=== PATIENT | male | born 1965 | race Two or more races ===

== ENCOUNTER 2017-11-08 08:49 | Day surgery (SDC) | payer OTHER ==
[~2017-11-08] VITALS: Ht 172.7 cm; Wt 86.2 kg
[2017-11-08] VITALS (8 sets, daily range): BP systolic 104–130; BP diastolic 62–89
[~2017-11-08 08:49] MED LIST: IBUPROFEN600 MG PO; NKM; NORCO 5-325 TA1 EACH ORAL; VALIUM5 MG ORAL; ceFAZolin 1 GM premix IV ONE; celeBREX 200mg Cap **SURGERY PATIENTS ONLY ORAL ONE; oxyCONTIN 20mg tab ORAL ONE
[2017-11-08] MEDS ORDERED: fentaNYL 100 mcg/2 mL IV ONE (08:50)
[2017-11-08] MEDS ORDERED: Midazolam 2mg/2ml Inj ONE (08:50)
[2017-11-08] MEDS ORDERED: LR 1000ml ONE (08:50)
[2017-11-08] MEDS ORDERED: Propofol 200mg/20ml IV ONE (08:50)
[2017-11-08] MEDS ORDERED: Dexamethasone 4mg/ml vial ONE (08:50)
[2017-11-08] MEDS ORDERED: Zemuron 50mg/5ml Inj IV ONE (08:50)
[2017-11-08] MEDS ORDERED: Lidocaine 1% MPF 10mg/ml 5ml ONE (08:50)
--- NOTE | 2017-11-08 09:14 | Operative Note - PDOC ---
Operative Note Operative Note Pre-op Diagnosis: left shoulder impingement Procedure: left shoulder arthroscopy, sad, RC repair Post-op Diagnosis: same as pre-op plus Operative Findings: consistent w/pre-op dx studies Anesthesia: regional Specimen: none Complications: none Condition: stable Estimated Blood Loss: none Implant(s) used?: Yes ANEL BURNETT Nov 08, 2017 09:14
--- NOTE | 2017-11-08 09:14 | Pre-Procedure Note/Attestation ---
Pre-Procedure Note/Attestation Complete Prior to Procedure Planned Procedure: left Procedure Narrative: shoulder arthroscopy, sad Indications for Procedure Pre-Operative Diagnosis: left shoulder impingement Attestation I attest that I discussed the nature of the procedure; its benefits; risks and complications; and alternatives (and the risks and benefits of such alternatives ), prior to the procedure, with the patient (or the patient's legal treasury representative). I attest that, if there was a reasonable possibility of needing a blood transfusion, the patient (or the patient's legal treasury representative) was given the [facility] standardized written summary, pursuant to the [place] Blood Safety Act ([place] Health and Safety Code # 1645, as amended). I attest that I re-evaluated the patient just prior to the surgery and that there has been no change in the patient's H&P, except as documented below: ANEL BURNETT Nov 08, 2017 09:14
[2017-11-08] MEDS ORDERED: HYDROmorphone 1mg/ml Carpuject SUBQ PRN (09:15)
[2017-11-08] MEDS ORDERED: Norco 5mg/325mg tab ORAL PRN (09:15)
[2017-11-08] MEDS ORDERED: D5 1/2NS 1,000 ML IV SCH (09:15)
[2017-11-08] MEDS ORDERED: Tylenol #3 tab (300mg/30mg) ORAL PRN (09:15)
[2017-11-08] MEDS ORDERED: celeBREX 200mg Cap **SURGERY PATIENTS ONLY ORAL ONE (10:13)
[2017-11-08] MEDS ORDERED: Bupivacaine 0.25% Inj 30ml INJ ONE (11:07)
[2017-11-08] MEDS ORDERED: EPINEPHrine 1mg/1ml Amp ONE (11:07)
[2017-11-08] MEDS ORDERED: Ropivacaine 5mg/ml Vial 30ml INJ ONE (12:16)
--- NOTE | 2017-11-08 12:58 | Anethesia Preoperative Eval ---
Anesthesia Pre-op PMH/ROS General Date of Evaluation: Nov 08, 2017 Anesthesiologist: Mo ASA Score: ASA 1 Mallampati Score Class I : Soft palate, uvula, fauces, pillars visible Class II: Soft palate, uvula, fauces visible Class III: Soft palate, base of uvula visible Class IV: Only hard plate visible Mallampati Classification: Class II Surgeon: Khanh Diagnosis: Left shoulder pain Surgical Procedure: Left shoulder arthroscopy Anesthesia History: none Family History: no anesthesia problems Allergies: Coded Allergies: ATROPINE (Verified Allergy, Mild, SPEEDS HEART, 01/13/14) Medications: see eMAR Past Medical History Cardiovascular: Denies: HTN, CAD, [place], valve dz, arrhythmia, other Pulmonary: Denies: asthma, COPD, AZRA, other Gastrointestinal/Genitourinary: Denies: GERD, CRI, ESRD, other Neurologic/Psychiatric: Denies: dementia, CVA, depression/anxiety, TIA, other Endocrine: Denies: DM, hypothyroidism, steroids, other HEENT: Denies: cataract (L), cataract (R), glaucoma, [place] (L), [place] (R), other Hematology/Immune: Denies: anemia, DVT, bleeding disorder, other Musculoskeletal/Integumentary: Denies: OA, RA, DJD, DDD, edema, other PSxH Narrative: Right shoulder arthroscopy Anesthesia Pre-op Phys. Exam Physician Exam Last Vital Signs Date Time Temp Pulse Resp B/P (MAP) Pulse Ox O2 Delivery O2 Flow Rate FiO2 11/08/17 09:33 97.5 57 20 119/70 97 Room Air Constitutional: NAD Cardiovascular: RRR Respiratory: CTA Airway Exam Mallampati Score: Class II MO: full ROM: full Teeth: intact Anesthesia Pre-op A/P Labs see chart Studies Pre-op Studies: EKG - srs Risk Assessment & Plan Assessment: ASA I Plan: GA, left interscalene nerve block Status Change Before Surgery: No Pre-Antibiotics Drug: Ancef 2g Given Within 1 Hr of Incision: Yes Time Given: 12:45 LOLY COLEMAN M.D. Nov 08, 2017 12:58
--- NOTE | 2017-11-08 12:59 | 48 Hour Post Anesthesia Eval ---
Post Anesthesia Evaluation Procedure: Left shoulder arthroscopy Date of Evaluation: Nov 08, 2017 Time of Evaluation: 15:00 Blood Pressure Systolic: 104 0: 62 Pulse Rate: 71 Respiratory Rate: 17 Temperature (Fahrenheit): 97 O2 Sat by Pulse Oximetry: 95 Airway: patent Nausea: No Vomiting: No Pain Intensity: 0 Hydration Status: adequate Cardiopulmonary Status: at baseline Mental Status/LOC: patient returned to baseline Post-Anesthesia Complications: 0 Follow-up care needed: ready to discharge LOLY COLEMAN M.D. Nov 08, 2017 12:59
--- NOTE | 2017-11-08 12:59 | Immediate Post-Op Evaluation ---
Immediate Post-Op Evalulation Immediate Post-Op Evalulation Procedure: Left shoulder arthroscopy Date of Evaluation: Nov 08, 2017 Time of Evaluation: 14:08 IV Fluids: 800 Blood Products: 0 Estimated Blood Loss: min Urinary Output: 0 Blood Pressure Systolic: 121 Blood Pressure Diastolic: 72 Pulse Rate: 63 Respiratory Rate: 16 O2 Sat by Pulse Oximetry: 99 Temperature (Fahrenheit): 97.7 Pain Score (1-10): 0 Nausea: No Vomiting: No Complications 0 Patient Status: awake, reacts, patent, none Hydration Status: adequate Drug: Ancef 2g Given Within 1 Hr of Incision: Yes Time Given: 12:45 LOLY COLEMAN M.D. Nov 08, 2017 12:59
[2017-11-08] MEDS ORDERED: LR 1000ml 1,000 ML IVLG SCH (13:08)
[2017-11-08] MEDS ORDERED: LORazepam Inj 2mg/ml 1ml IV PRN (13:15)
[2017-11-08] MEDS ORDERED: Midazolam 2mg/2ml Inj IVP PRN (13:15)
[2017-11-08] MEDS ORDERED: Ketorolac 30mg Inj IV PRN (13:15)
[2017-11-08] MEDS ORDERED: fentaNYL 100 mcg/2 mL IV PRN (13:15)
[2017-11-08] MEDS ORDERED: Hydromorphone 0.5mg/0.5ml inj IVP PRN (13:15)
[2017-11-08] MEDS ORDERED: DiphenhydrAMINE 50mg/ml Inj IVP PRN (13:15)
--- NOTE | 2017-11-08 18:45 | Operative Note - Dictated ---
DATE OF OPERATION: 11/08/2017 PREOPERATIVE DIAGNOSIS: Shoulder impingement syndrome. POSTOPERATIVE DIAGNOSIS: 1. Left shoulder impingement syndrome. 2. Left shoulder bursal-sided high-grade rotator cuff tear. PROCEDURES: 1. Left shoulder subacromial decompression with bursectomy. 2. Left shoulder repair of bursal-sided full-thickness rotator cuff tear. SURGEON: Tobi Cassidy M.D. ANESTHESIA: Interscalene with general. INDICATION FOR PROCEDURE: The patient is a pleasant gentleman, who has had progressive left shoulder pain. He failed conservative treatment and he is still having difficulty with activities and elected to undergo left shoulder arthroscopy and subacromial decompression bursectomy. Risks, limitations, expectations, and complications related to the procedure were discussed in detail including continued pain, need for future surgery, risk of anesthesia, medical complications, DVT, PE, and mortality risks. All questions were addressed. DESCRIPTION OF PROCEDURE: After informed consent was obtained, the patient was brought to the operating room. The patient was placed under monitored anesthesia control. The patient was then carefully placed in the beachchair position. Left shoulder was prepped and draped in a sterile manner. Time-out was performed. Posterolateral stab incision was then made. Trocar was introduced into the glenohumeral joint. There is no subchondral damage. Anterior labrum appeared to be intact along with the superior labrum. The undersurface of the rotator cuff, there is small partial rotator cuff tear that did not appear to be full-thickness. Camera was then repositioned in the subacromial space. There is hypertrophic bursal tissue, which was all removed identified at undersurface of the acromion and acromioplasty was done from lateral to medial and completed from posterior to anterior. Once that was done, a complete bursectomy was performed. Once the resection was performed, a bursal-sided high-grade rotator cuff tear was identified. Therefore, an anchor was placed and two mattress sutures were used to synch down the rotator cuff along with the lateral row. Once that was completed, instruments were removed. Portal sites were closed with 3-0 Monocryl sutures. Steri-Strips and a sterile dressing were applied. The patient was awoken and taken to recovery room with stable vital signs. ESTIMATED BLOOD LOSS: Minimal. COMPLICATIONS: None. SPECIMENS: None. IMPLANTS: Two Biomet anchors. Tobi Cassidy M.D. DR: VISHAL JOB#: [id number] CC:
[2017-11-12 07:03] VITALS: BP 104/62
== END 2017-11-08 15:30 | disposition home or self-care (01) ==
LOC: SDS 08:49
DX: M75.42 Impingement syndrome of left shoulder (principal); M75.122 Complete rotator cuff tear or rupture of left shoulder, not specified as traumatic; Z88.8 Allergy status to other drugs, medicaments and biological substances
CPT/HCPCS: 29826; 29827; C1713; J0171; J1100; J2250; J2405; J2704; J2795; J3010; J3490; J7120; 94003; 94150

== ENCOUNTER 2019-07-03 05:27 | Inpatient (IN) | payer OTHER ==
[2019-07-03] VITALS (16 sets, daily range): BP systolic 110–146; BP diastolic 50–91
[~2019-07-03] VITALS: Ht 172.7 cm; Wt 81.6 kg
[~2019-07-03 05:27] MED LIST changes: -ceFAZolin 1 GM premix IV ONE; -celeBREX 200mg Cap **SURGERY PATIENTS ONLY ORAL ONE; -oxyCONTIN 20mg tab ORAL ONE
[2019-07-03] MEDS ORDERED: LR 1000ml 1,000 ML IVLG SCH (06:29)
[2019-07-03] MEDS ORDERED: Metoclopramide 10mg/2ml Inj IVP PRN ×2 (06:30→07:45)
[2019-07-03] MEDS ORDERED: oxyCODONE HCL/Acetaminophen 5/325mg ORAL PRN (06:30)
[2019-07-03] MEDS ORDERED: Midazolam 2mg/2ml Inj IVP PRN (06:30)
[2019-07-03] MEDS ORDERED: fentaNYL 100 mcg/2 mL IV PRN (06:30)
[2019-07-03] MEDS ORDERED: Labetalol 5mg/ml 20ml vial IV PRN (06:30)
[2019-07-03] MEDS ORDERED: Ketorolac 30mg Inj IV PRN ×2 (06:30)
[2019-07-03] MEDS ORDERED: Hydromorphone 0.5mg/0.5ml inj IVP PRN (06:30)
[2019-07-03] MEDS ORDERED: Acetaminophen (Non formulary) 100 ML IV ONE (06:30)
[2019-07-03] MEDS ORDERED: Meperidine 50mg/ml Inj(FOR RIGORS ONLY) IVP PRN (06:30)
[2019-07-03] MEDS ORDERED: HYDROcodone/Acetamin 7.5/325 tab ORAL PRN ×2 (06:30→07:45)
[2019-07-03] MEDS ORDERED: LORazepam Inj 2mg/ml 1ml IV PRN (06:30)
[2019-07-03] MEDS ORDERED: DiphenhydrAMINE 50mg/ml Inj IVP PRN (06:30)
[2019-07-03] MEDS ORDERED: HYDROcodone/Acetamin 5/325 tab ORAL PRN ×2 (06:30→07:45)
--- NOTE | 2019-07-03 06:30 | Anethesia Preoperative Eval ---
Anesthesia Pre-op PMH/ROS General Date of Evaluation: Jul 03, 2019 Time of Evaluation: 07:16 Anesthesiologist: Felix ASA Score: ASA 1 Mallampati Score Class I : Soft palate, uvula, fauces, pillars visible Class II: Soft palate, uvula, fauces visible Class III: Soft palate, base of uvula visible Class IV: Only hard plate visible Mallampati Classification: Class II Surgeon: Von Diagnosis: Neck Pain Surgical Procedure: ADR C5-6, ACDF C6-7 Anesthesia History: none Family History: no anesthesia problems Allergies: Coded Allergies: ATROPINE (Verified Allergy, Mild, SPEEDS HEART, 01/13/14) Medications: see eMAR Patient NPO?: Yes NPO Date: Jul 02, 2019 NPO Time: 1800 Past Medical History PSxH Narrative: L&R Shoulder Sx, R Knee Sx Anesthesia Pre-op Phys. Exam Physician Exam Last Vital Signs Date Time Temp Pulse Resp B/P (MAP) Pulse Ox O2 Delivery O2 Flow Rate FiO2 07/03/19 06:07 Room Air Constitutional: NAD Neurologic: CN 2-12 intact Cardiovascular: RRR Respiratory: CTA Gastrointestinal: S/NT/ND Airway Exam Mallampati Score: Class II MO: full ROM: full Teeth: intact Anesthesia Pre-op A/P Risk Assessment & Plan Assessment: ASA 1 Plan: ASA 1 Status Change Before Surgery: No Pre-Antibiotics Dru Grams Ancef IV Given Within 1 Hr of Incision: Yes Time Given: 07:21 Simba Washington MD Jul 03, 2019 06:30
[2019-07-03] MEDS ORDERED: Vancomycin 1gm vial IVPB ONE (06:33)
[2019-07-03] MEDS ORDERED: Gelfoam Size TOPIC ONE (06:34)
[2019-07-03] MEDS ORDERED: Thrombin 5000 units TOPIC ONE (06:34)
[2019-07-03] MEDS ORDERED: Bacitracin 50000 Units Vial ONE (06:34)
[2019-07-03] MEDS ORDERED: Zemuron 50mg/5ml Inj IV ONE (06:37)
[2019-07-03] MEDS ORDERED: Dexamethasone 4mg/ml vial ONE (06:47)
[2019-07-03] MEDS ORDERED: fentaNYL 100 mcg/2 mL IV ONE (06:47)
[2019-07-03] MEDS ORDERED: Lidocaine 1% Plain 30 ml INJ ONE ×2 (06:47→08:57)
[2019-07-03] MEDS ORDERED: Sodium Chloride 10ml vial INJ ONE (06:47)
[2019-07-03] MEDS ORDERED: Lidocaine 1% MPF 10mg/ml 5ml ONE (06:47)
[2019-07-03] MEDS ORDERED: Propofol 1,000mg/ 100ml btl IV ONE (07:00)
[2019-07-03] MEDS ORDERED: ceFAZolin sod 2 GM in D5W 110 ML IVPB ONE (07:00)
--- NOTE | 2019-07-03 07:33 | Pre-Procedure Note/Attestation ---
Pre-Procedure Note/Attestation Complete Prior to Procedure Planned Procedure: not applicable Procedure Narrative: Cervical 56 artificial disc replacement Cervical 67 Anterior cervical discectomy and fusion Indications for Procedure Pre-Operative Diagnosis: cervical 56,67 hnp Attestation I attest that I discussed the nature of the procedure; its benefits; risks and complications; and alternatives (and the risks and benefits of such alternatives ), prior to the procedure, with the patient (or the patient's legal patient registration representative). I attest that, if there was a reasonable possibility of needing a blood transfusion, the patient (or the patient's legal patient registration representative) was given the [facility] standardized written summary, pursuant to the [place] Blood Safety Act ([place] Health and Safety Code # 1645, as amended). I attest that I re-evaluated the patient just prior to the surgery and that there has been no change in the patient's H&P, except as documented below: Jose A Longoria MD Jul 03, 2019 07:33
--- NOTE | 2019-07-03 07:35 | Brief Operative Note ---
Immediate Post Operative Note Operative Note Chief Complaint: neck pain and radiculopathy Pre-op Diagnosis: cervical 56,67 hnp Procedure: Cervical 56 artificial disc replacement Cervical 67 Anterior cervical discectomy and fusion Post-op Diagnosis: same as pre-op Findings: consistent w/pre-op dx studies Surgeon: Von Topographic Computator: Khanh Anesthesiologist: Felix Anesthesia: general Specimen: none Complications: none Condition: stable Fluids: IVF Estimated Blood Loss: minimal Drains: none Implant(s) used?: Yes - Prodisc c sz 5, nuvasive interlock sz 6 Jose A Longoria MD Jul 03, 2019 07:35
[2019-07-03] MEDS ORDERED: Morphine Sulfate 4mg/ml Inj (IV USE ONLY) IV PRN ×2 (07:45)
[2019-07-03] MEDS ORDERED: HYDROmorphone 1mg/ml Carpuject IVP PRN (07:45)
[2019-07-03] MEDS ORDERED: Chloraseptic Spray 20mL Bottle ORAL PRN (07:45)
[2019-07-03] MEDS ORDERED: Milk of Magnesia 30ml Ud ORAL PRN (07:45)
[2019-07-03] MEDS ORDERED: Morphine Sulfate 2mg/ml Inj(IV/IM USE ONLY) IV PRN (07:45)
[2019-07-03] MEDS ORDERED: Naloxone 0.4mg/ml Inj IVP PRN (07:45)
--- NOTE | 2019-07-03 08:34 | NUR ---
CASE MANAGEMENT:REVIEW 53 YR OLD MALE HERE FOR ELECTIVE SURGERY SI: NECK PAIN AND RADICULOPATHY IS: TO SURGERY : WILL GO TO MED/SURG POST OP
[2019-07-03] MEDS ORDERED: Glycopyrrolate 0.2mg/ml 1ml Vial ONE (09:23)
--- NOTE | 2019-07-03 10:02 | Immediate Post-Op Evaluation ---
Immediate Post-Op Evalulation Immediate Post-Op Evalulation Procedure: ADR C5-6, ACDF C6-7 Date of Evaluation: Jul 03, 2019 Time of Evaluation: 10:08 IV Fluids: 900 LR Blood Products: 0 Estimated Blood Loss: 25 Urinary Output: 100 Blood Pressure Systolic: 135 Blood Pressure Diastolic: 91 Pulse Rate: 69 Respiratory Rate: 16 O2 Sat by Pulse Oximetry: 100 Temperature (Fahrenheit): 97.6 Pain Score (1-10): 2 Nausea: No Vomiting: No Complications 0 Patient Status: awake, reacts, patent, extubated, none Hydration Status: adequate Dru Grams Ancef IV Given Within 1 Hr of Incision: Yes Time Given: 07:21 Simba Washington MD Jul 03, 2019 10:02
--- NOTE | 2019-07-03 10:50 | NUR ---
HIS HR IS ON 40'S, DR. RODAS MADE AWARE WITH NO NEW ORDERS NOTED.
--- NOTE | 2019-07-03 11:30 | NUR ---
NURSE NOTES: Received report from Modesta MELGAR. Patient is awake and oriented, no acute distress noted, reporting throat discomfort but reports pain is well managed at this time. Surgical site clean and dry, ice pack in place. SCD's on. Left hand IV intact, patent. Gonzales catheter removed at bedside by Modesta MELGAR. Neuro check assessed intact, patient reports no numbness/tingling in extremities or difficulty with movement. Patient educated not to turn head side to side, to keep neck in neutral position, verbalized understanding. Patient and his son at bedside updated on plan of care for the day. Side rails upx3, bed low and locked, call light in reach. Will continue to monitor.
[2019-07-03] MEDS: Dexamethasone 4mg/ml vial IVP SCH ×3 (12:15→23:29)
[2019-07-03] MEDS ORDERED: NS w/KCl 20mEq 1000ml 1,000 ML IV SCH (13:00)
--- NOTE | 2019-07-03 14:19 | Diagnostic Imaging Report ---
Indication: Intraoperative imaging discectomy and fusion Findings: 4 fluoroscopic views of the cervical spine were obtained. Intraoperative imaging showing localization followed by discectomy and prosthesis placement at C5-6 and anterior fusion at C6-7. IMPRESSION: Intraoperative imaging
[2019-07-03] MEDS: ceFAZolin sod 1 GM in D5W 55 ML IV SCH ×2 (15:49→23:29)
--- NOTE | 2019-07-03 16:45 | Operative Note - Dictated ---
DATE OF OPERATION: 07/03/2019 SURGEON: Jose A Longoria MD, orthopedic spine surgeon. NEURORADIOLOGIST: Tobi Cassidy M.D. ANESTHESIA: Simba Washington M.D. PREOPERATIVE DIAGNOSES: 1. Intractable neck pain. 2. Radiculopathy. 3. Herniation, C5-C6, C6-C7. 4. Neural foraminal stenosis C5-C6, C6-C7. 5. Stenosis. POSTOPERATIVE DIAGNOSES: 1. Intractable neck pain. 2. Radiculopathy. 3. Herniation, C5-C6, C6-C7. 4. Neural foraminal stenosis C5-C6, C6-C7. 5. Stenosis. PROCEDURE PERFORMED: 1. Anterior cervical discectomy and artificial disc replacement of C5-C6 using a Synthes Prodisc C 5 height. 2. Anterior cervical discectomy and fusion of C6-C7 Nuvasive Interlock C size 6 PEEK cage and three 14 mm screws and 1 mL Osteocell allograft bone and local autograft. 3. Use of intraoperative microscope. 4. Motor evoked potential monitoring. 5. Somatosensory evoked potential monitoring. 6. Supervision and interpretation of fluoroscopy. COMPLICATIONS: None. ANESTHESIA: General. ESTIMATED BLOOD LOSS: Less than 100 mL. INDICATIONS FOR SURGERY: This patient is a 53-year-old male who has a history of diagnoses as listed above. As of result of this, the patient sustained intractable neck pain, radiculopathy, herniation, C5-C6, C6-C7, neural foraminal stenosis C5-C6, C6-C7, stenosis. We tried a course of conservative management but despite this course there was still a significant component of persistent, recalcitrant neck pain and arm pain. The MRI demonstrated significant neural foraminal compromise secondary to disc herniations at C5-C6, C6-C7. We had a long discussion with Klaus regarding the risks and benefits of surgery. Our discussion included but was not limited to nonoperative management, chiropractic management, another epidural steroid injection as well definitive management in the form of surgery. We recommended an artificial disc replacement of C5-C6 and anterior cervical discectomy and fusion of C6-C7 as final definitive management. We reviewed the risks and benefits of surgery with the patient. Our discussion included a comprehensive review of the clinical issues and the nature of the clinical decision. We reviewed the alternatives, including doing nothing. The patient elected to proceed accordingly with an artificial disc replacement of cervical C5-C6 and anterior cervical discectomy and fusion of cervical C6-C7. We had a long discussion regarding the risks, alternatives and benefits of surgery. Our description of the risks included a discussion in person as well as a signed consent which detailed all pertinent risks from the procedure itself. Briefly, our discussion included but was not limited to infection, bleeding, pseudarthrosis, spinal cord injury, neurovascular injury, dural tear, CSF leak, neuropathy, paralysis, permanent weakness/drop foot/drop arm, paresthesias, blindness, palsy and weakness. The patient understood there may be a need for a revision surgery or additional procedures. Approach-related complications including dysphonia, dysphagia, blindness, permanent vocal cord and neural injury, hematoma, swallowing and breathing difficulty. Medical complications were reviewed including liver, kidney, shock, cardiopulmonary failure, anesthesia complications including , swelling, damage to the musculature, larynx/voice injury or loss, esophagus/throat, trachea, blood vessels and muscles/muscular sprain and lungs/pneumothorax during this surgical procedure; injury to deeper structures may be temporary or permanent. After this review of risks, the patient understood these and elected to proceed. A written and verbal consent was given. We discussed the pros and cons of all the alternatives. We discussed the uncertainties associated with the decision. Afterwards I assessed the patient's understanding and explored their preferences. All questions were answered and no guarantees were given. Medical clearance was obtained prior to surgery. INTRAOPERATIVE FINDINGS: A discrete disc herniation which was found posterior to an obvious tear in the posterior longitudinal ligament at C5-C6. This was causing a considerable amount of neural foraminal stenosis with significant encroachment on the neural foramina and spinal cord which was being impinged as a result of this pressure. Upon inspection of the interspace at C6-C7. I noticed a rent in the posterior longitudinal ligament or PLL. Upon inspection of this tear once it was mobilized with Kerrison rongeurs there was a disc fragment and herniation causing encroachment on the neural foramina and spinal cord posterior to the PLL. This was resected as well which caused some noted relief on the underlying neural elements. At C5-C6, I encountered a tear in the posterior longitudinal ligament, which was approximately 28 degrees cephalad to caudad, which was approximately right-sided near the neural foramina. There was clear distinct tear in the PLL. I probed this area. Posterior to this, I found the base of the disc herniation, which was resected with a combination of Microsect curettes, Kerrison-1 and Kerrison-2 rongeurs till the entire thecal sac and neural foramina were thoroughly decompressed. The disc itself was soft, mobile, and not desiccated in anyway or dehydrated. At C6-C7, I found decreased disc height near the posterior longitudinal ligament. There was a tear in the PLL itself, which was more vertical in nature. Through this, I encountered after probing with a Microsect 1-B and 2-B curettes, the base of a disc herniation was led to a large fragment of herniated nucleus pulposus tissue with encroachment on the exiting neural foramina and neural element therein near the spinal cord as well. The disc itself was somewhat desiccated; however, not calcified whatsoever. DESCRIPTION OF PROCEDURE: Under the benefit of general endotracheal anesthesia and with the assistance of the entire operative team, the patient was moved from the rney onto the operative table in the supine position. The head was secured and carefully positioned appropriately. Bilateral arms were secured with GelPads and foam and all bony prominences were padded. For the bilateral lower extremities SCD and GENET hose were placed for DVT prophylaxis. A surgical timeout was called which corroborated our planned procedure of artificial disc replacement of an artificial disc replacement of C5-C6 and anterior cervical discectomy and fusion of cervical C6-C7. Preoperative antibiotics were administered within 30 minutes of the incision for antibiotic prophylaxis. Using lateral fluoroscopic radiography, the operative levels were delineated. Next the wound was prepped and draped with Chlorhexidine and sterile drapes. An incision was based on lateral fluoroscopy and we centered our incision at the C5-C6, C6-C7. Interspace and next using a standard Lynne-Davila anterior based approach the incision was taken down through the skin and subcutaneous tissues until the vertebral bodies and their corresponding disc spaces were visualized. A needle was placed into the interspace to confirm placement of the operative interspace and we performed the remainder of procedure under microscopic visualization. Next, using a bipolar and Bovie cautery to ensure meticulous hemostasis, the longus colli was mobilized bilaterally and retractors were placed deep to the longus colli bilaterally to address retraction. Next we turned our attention to the radical anterior discectomy. This was initially performed at C5-C6. First by using a 15 blade scalpel followed by narrow pituitaries and a Microsect 5-B curette was used to denude the endplate of all cartilaginous tissue. Next using a Midas Noe AM8 drillbit the vertebral endplates were denuded of all residual cartilage in a [id number]-[id number] and layer by layer fashion, and ultimately the posterior uncinate joints bilaterally and posterior osteophytic lips and margins were carefully denuded until clear visualization of the posterior longitudinal ligament was possible. An endplate preparation was performed in the exact same fashion using an intervertebral paper sales representative, sequential distraction was obtained throughout the disc space. We saw a tear/rent in the PLL and this was carefully mobilized and dissected using a Microsect 1-B curet until we visualized a discrete disc herniation with compression of the spinal cord as well as neural foramina . This neural foraminal compression was carefully resected using a Kerrison-1 and Kerrison-2 rongeurs until complete decompression of the spinal cord was visualized and complete decompression of the neural foramina and nerve root therein as well as the axilla and lateral margin of the nerve root was visualized and subsequently completely decompressed. The family was notified at one hour intervals throughout the procedure to provide for consistent updates. We next turned our attention towards trialing our implant within the disc space. We initially tried size 5 and this Prodisc Cervical spacer fit well in regards to depth and width. This implant was opened and prepared. Next under direct visualization I confirmed excellent fit in respect to the anterior and posterior vertebral bodies, the uncinate joints and in regards to toggle. Once satisfied with this placement on serial AP and lateral fluoroscopy I turned my attention towards cutting our vinicius. These were cut in the bones using a reciprocating drill and afterwards all free fragments of bone were irrigated. Next FloSeal was placed into the interspace, then removed in its entirety and the implant was inserted using fluoroscopic guidance. Next the Synthes Prodisc C size 5 ADR was then carefully advanced and secured into the intervertebral space under direct visualization and with supervision of AP and lateral fluoroscopic views. I next turned my attention towards the radical anterior discectomy. This was then performed at C6-C7. First by using a 15 blade scalpel followed by narrow pituitaries and a micro-sect 5-B curette was used to denude the endplate of all cartilaginous tissue. Next using a Midas Noe AM8 drillbit the vertebral endplates were denuded of all cartilaginous tissue in a rzvb-dy-kkiz and layer by layer fashion, and ultimately the posterior uncinate joints bilaterally and posterior osteophytic lips and margins were carefully denuded until wide and thorough visualization of the posterior longitudinal ligament was possible. At this level the endplate preparation was performed in the exact same fashion using an intervertebral paper sales representative, sequential distraction was obtained throughout the disc space. We saw a tear/rent in the PLL and this was carefully mobilized and dissected using a micro-set 1-B curette until we visualized an obvious disc herniation with compression of the spinal cord as well as neural foramina . This neural foraminal compression was carefully resected using a Kerrison-1 and Kerrison-2 rongeurs until complete decompression of the spinal cord was visualized and complete decompression of the neural foramina and nerve root therein as well as the axilla and lateral margin of the nerve root was visualized and subsequently completely decompressed. We next turned our attention towards trialing our implant within the disc space. We initially tried size 5 and afterwards size 6 trial from the Nuvasive interlock system at each level, which appeared to be appropriate under AP and lateral fluoroscopy as well as in terms of its height, depth, width and lack of toggle. The PEEK polyetheretherketone interbody cages were then both packed with allograft bone from Osteocel and local autograft bone matrix. Next these were then carefully advanced and secured into their intervertebral spaces under direct visualization and with supervision of AP and lateral fluoroscopic views. We next turned our attention towards plating. Plating was performed at each level with the Nuvasive interlock-C plating system. A total of three screws, size 14 mm in length were inserted and confirmed under AP and lateral fluoroscopy and confirmed to be in excellent position. After a finger sweep we confirmed removal of all sponges. The retractor was removed and we next turned our attention to meticulous hemostasis with FloSeal and bipolar cautery. After the sponge and needle count was again found to be correct with our second count, we next turned our attention to closure. The wound was again copiously irrigated with antibiotic impregnated saline Closure consisted of 4-0 clear nylon for the platysma, and 5-0 clear nylon for the superficial skin. Final skin closure and dressings consisted of Dermabond. Prior to final closure, a final radiograph was obtained which demonstrated the hardware is intact with excellent position throughout. The patient tolerated the procedure well. The patient was carefully extubated after the conclusion of surgery. We discussed the findings of the surgery with the family upon completion of the case. At this point the patient was transferred to the spine floor for further observation. Jose A Longoria M.D. DR: AZAEL JOB#: [id number] CC:
--- NOTE | 2019-07-03 17:43 | NUR ---
NURSE NOTES: Patient eating well and tolerating PO fluids. IVF discontinued per order.
[2019-07-03] MEDS: Docusate 100mg cap ORAL SCH (17:47)
--- NOTE | 2019-07-03 19:30 | NUR ---
HAND-OFF: Report given to Brenden MELGAR.
--- NOTE | 2019-07-03 19:52 | NUR ---
NURSE NOTES: Received report from Cinda Boykin RN. Patient is ambulating in room, SCDs on legs. No c/o of pain, SOB or distress. Requesting permission to eat food. IV c/d/i. surgical site open to air with Dermabond. No s/s of redness or inflammation. Will continue to monitor.
[2019-07-03] MEDS: HYDROcodone/Acetamin 7.5/325 tab ORAL PRN (21:56)
[2019-07-04] VITALS: BP 117/99
[2019-07-04 04:00] VITALS: BP 126/85
[2019-07-04] MEDS: HYDROcodone/Acetamin 7.5/325 tab ORAL PRN (04:37)
[2019-07-04] MEDS: Dexamethasone 4mg/ml vial IVP SCH (06:08)
--- NOTE | 2019-07-04 07:30 | NUR ---
NURSE NOTES: AWAKE/ALERT. PAIN SCALE 6/10. ANTERIOR NECK DRESSING INTACT. IN NO ISTRESS.
--- NOTE | 2019-07-04 07:31 | NUR ---
HAND-OFF: Report given to TALIA Hernandez. Patient is in stable condtion.
[2019-07-04 08:00] VITALS: BP 132/86
[2019-07-04] MEDS: Docusate 100mg cap ORAL SCH (08:48)
[2019-07-04] MEDS: ceFAZolin sod 1 GM in D5W 55 ML IV SCH (08:49)
[2019-07-04 09:40] VITALS: BP 132/86
--- NOTE | 2019-07-04 09:40 | 48 Hour Post Anesthesia Eval ---
Post Anesthesia Evaluation Procedure: ADR C5-6, ACDF C6-7 Date of Evaluation: Jul 04, 2019 Time of Evaluation: 09:39 Blood Pressure Systolic: 132 0: 86 Pulse Rate: 96 Respiratory Rate: 18 Temperature (Fahrenheit): 97.7 O2 Sat by Pulse Oximetry: 96 Airway: patent Nausea: No Vomiting: No Pain Intensity: 3 Hydration Status: adequate Cardiopulmonary Status: Stable Mental Status/LOC: patient returned to baseline Follow-up Care/Observations: 0 Post-Anesthesia Complications: 0 Follow-up care needed: N/A Simba Washington MD Jul 04, 2019 09:40
[2019-07-04] MEDS ORDERED: NORCO 10-325 T1 EACH ORAL (09:47)
--- NOTE | 2019-07-04 11:25 | NUR ---
NURSE NOTES: DISCHARGE HOME ACCPD BY FRIEND IN STABLE CONDITION. DC INSTRUCTIONS AND PRESCRIPTION MEDS GIVEN.
--- NOTE | 2019-07-04 11:30 | Discharge Summary ---
DATE OF ADMISSION: 07/03/2019 DATE OF DISCHARGE: 07/04/2019 PROCEDURE PERFORMED DURING ADMISSION: Artificial disc replacement of C5-C6, anterior cervical discectomy and fusion of C6-C7. REASON FOR ADMISSION: Herniated nucleus pulposus C5-C6 and C6-C7. HOSPITAL COURSE/TREATMENT RENDERED: DISCHARGE PHYSICAL EXAMINATION: 1. The patient was ambulating with and without the assistance of physical therapy. 2. Prior to discharge home, incision was clean and dry with minimal swelling. 3. Follows commands. 4. Alert and oriented. 5. Gonzales discontinued, voiding. 6. Incentive spirometer at bedside. 7. IVF hep locked. MOTOR: Demonstrates expected postoperative bulk and tone. Moves biceps, triceps, and deltoid musculature on command. Moves hip flexors, quadriceps, tibialis anterior, EHL, gastrocsoleus musculature on command as well. TREATMENT RENDERED: 1. Daily nursing care. 2. Physical Therapy. 3. Occupational Therapy. 4. Intravenous medications. 5. Oral medications. 6. Daily postoperative examinations by Spine surgery team. CONDITION OF PATIENT ON DISCHARGE: The condition on discharge is stable for discharge to home. DISCHARGE INSTRUCTIONS: Our specific instructions relating to physical activity, medications, diet, and followup care are detailed in our standard operative folder and were given to this patient prior to surgery. We will however summarize these briefly as stated below. Regarding physical activity, we would like the patient to limit their flexion, extension, and rotation. We also require a limitation on their bending, lifting, and twisting. All medication has been called in prior to surgery to their pharmacy of choice. They can resume their regular diet once tolerated. We would like them to shower and limit soaking the wound in a tub/Jacuzzi/the ocean for a period of one month or until the incision is completely healed. We will have them follow up in our office in three weeks' time for their regularly scheduled appointment. They understand to call our office tomorrow to schedule the time for their three-week followup appointment. The patient will notify us should they experience any increase in the severity of pain, redness/swelling/ or drainage from their incision. Jose A Longoria M.D. DR: CHANTELLE JOB#: [id number] CC:
== END 2019-07-04 11:29 | disposition home or self-care (01) | DRG 473 ==
LOC: SDSOVERFLO 05:27 → 3E 11:33
DX: M50.122 Cervical disc disorder at C5-C6 level with radiculopathy (principal); M48.02 Spinal stenosis, cervical region; V29.9XXS Motorcycle rider (driver) (passenger) injured in unspecified traffic accident, sequela
CPT/HCPCS: 36415; 72040; 76000; 86850; 86900; 86901; 87081; 94003; 94150; J2405

== ENCOUNTER 2019-10-06 05:19 | Inpatient (IN) | payer OTHER ==
[~2019-10-06] VITALS: Ht 172.7 cm; Wt 85.0 kg
[2019-10-06] VITALS (14 sets, daily range): BP systolic 104–140; BP diastolic 61–107
[~2019-10-06 05:19] MED LIST changes: +NORCO 10-325 T1 EACH ORAL
[2019-10-06] MEDS ORDERED: fentaNYL 100 mcg/2 mL IV ONE (06:34)
[2019-10-06] MEDS ORDERED: Midazolam 2mg/2ml Inj ONE (06:34)
[2019-10-06] MEDS ORDERED: Lidocaine 1% MPF 10mg/ml 5ml ONE (06:34)
[2019-10-06] MEDS ORDERED: Vancomycin 1gm vial IVPB ONE (06:44)
[2019-10-06] MEDS ORDERED: Thrombin 5000 units TOPIC ONE ×2 (06:45→08:38)
[2019-10-06] MEDS ORDERED: Gelfoam Size TOPIC ONE (06:45)
[2019-10-06] MEDS ORDERED: Bacitracin 50000 Units Vial ONE (06:46)
[2019-10-06] MEDS ORDERED: Ropivacaine 5mg/ml Vial 30ml INJ ONE ×2 (06:46→08:56)
[2019-10-06] MEDS ORDERED: Bupivacaine w/Epi 0.5% 30ml Vial INJ ONE (06:46)
[2019-10-06] MEDS ORDERED: Succinylcholine 20mg/ml 10ml vial ONE (06:47)
[2019-10-06] MEDS ORDERED: Rocuronium Bromide 50mg/5ml Inj IV ONE (06:47)
[2019-10-06] MEDS ORDERED: ceFAZolin sod 2 GM in D5W 110 ML IVPB ONE (07:00)
[2019-10-06] MEDS ORDERED: Propofol 1,000mg/ 100ml btl IV ONE (07:00)
--- NOTE | 2019-10-06 07:30 | Pre-Procedure Note/Attestation ---
Pre-Procedure Note/Attestation Complete Prior to Procedure Planned Procedure: bilateral Procedure Narrative: Hemilaminotomy foraminotomy Lumbar 45,5S1 Indications for Procedure Pre-Operative Diagnosis: Lumbar 45,5S1 herniation and neuroforaminal stenosis Attestation I attest that I discussed the nature of the procedure; its benefits; risks and complications; and alternatives (and the risks and benefits of such alternatives ), prior to the procedure, with the patient (or the patient's legal community engagement representative). I attest that, if there was a reasonable possibility of needing a blood transfusion, the patient (or the patient's legal community engagement representative) was given the [facility] standardized written summary, pursuant to the Saman Aurea Blood Safety Act ([place] Health and Safety Code # 1645, as amended). I attest that I re-evaluated the patient just prior to the surgery and that there has been no change in the patient's H&P, except as documented below: Jose A Longoria MD Oct 06, 2019 07:29
--- NOTE | 2019-10-06 07:31 | Brief Operative Note ---
Immediate Post Operative Note Operative Note Chief Complaint: Back pain and radiculopathy buttock pain Pre-op Diagnosis: Lumbar 45,5S1 herniation and neuroforaminal stenosis Procedure: Lumbar bilateral hemilaminotomy foraminotomy microdiscectomy of L45 L5S1 Post-op Diagnosis: same as pre-op Findings: consistent w/pre-op dx studies Surgeon: Von Teleprinter Installer: Khanh Anesthesiologist: TERESA Anesthesia: general Specimen: none Complications: none Condition: stable Fluids: IVF Estimated Blood Loss: minimal Drains: none Implant(s) used?: Jose A Skaggs MD Oct 06, 2019 07:31
[2019-10-06] MEDS ORDERED: Naloxone 0.4mg/ml Inj IVP PRN (07:45)
[2019-10-06] MEDS ORDERED: Morphine Sulfate 2mg/ml Inj(IV/IM USE ONLY) IV PRN (07:45)
[2019-10-06] MEDS ORDERED: Chloraseptic Spray 20mL Bottle ORAL PRN (07:45)
[2019-10-06] MEDS ORDERED: Milk of Magnesia 30ml Ud ORAL PRN (07:45)
[2019-10-06] MEDS ORDERED: Morphine Sulfate 4mg/ml Inj (IV USE ONLY) IV PRN (07:45)
[2019-10-06] MEDS ORDERED: HYDROcodone/Acetamin 5/325 tab ORAL PRN (07:45)
[2019-10-06] MEDS ORDERED: HYDROmorphone 1mg/ml Carpuject IVP PRN (07:45)
[2019-10-06] MEDS ORDERED: Metoclopramide 10mg/2ml Inj IVP PRN (07:45)
[2019-10-06] MEDS ORDERED: LR 1000ml 1,000 ML IVLG SCH (08:11)
[2019-10-06] MEDS ORDERED: Ketorolac 30mg Inj IV PRN (08:15)
[2019-10-06] MEDS ORDERED: Acetaminophen (Non formulary) 100 ML IV ONE (08:15)
[2019-10-06] MEDS ORDERED: Meperidine 50mg/ml Inj(FOR RIGORS ONLY) IVP PRN (08:15)
[2019-10-06] MEDS ORDERED: DiphenhydrAMINE 50mg/ml Inj IVP PRN (08:15)
--- NOTE | 2019-10-06 08:22 | Anethesia Preoperative Eval ---
Anesthesia Pre-op PMH/ROS General Date of Evaluation: Oct 06, 2019 Time of Evaluation: 07:02 Anesthesiologist: Marisol ASA Score: ASA 2 Mallampati Score Class I : Soft palate, uvula, fauces, pillars visible Class II: Soft palate, uvula, fauces visible Class III: Soft palate, base of uvula visible Class IV: Only hard plate visible Mallampati Classification: Class II Surgeon: Juan M Diagnosis: Lumbar radiculopathy Surgical Procedure: L4 to S1 laminotomy Anesthesia History: none Family History: no anesthesia problems Allergies: Coded Allergies: ATROPINE (Verified Allergy, Mild, SPEEDS HEART, 01/13/14) Medications: see eMAR Patient NPO?: Yes NPO Date: Oct 05, 2019 NPO Time: 1900 Past Medical History Cardiovascular: Denies: HTN, CAD, MA, valve dz, arrhythmia, other Pulmonary: Denies: asthma, COPD, AZRA, other Gastrointestinal/Genitourinary: Reports: GERD - mild; Denies: CRI, ESRD, other Neurologic/Psychiatric: Reports: other; Denies: dementia, CVA, depression/anxiety, TIA Endocrine: Denies: DM, hypothyroidism, steroids, other HEENT: Denies: cataract (L), cataract (R), glaucoma, [place] (L), [place] (R), other Hematology/Immune: Denies: anemia, DVT, bleeding disorder, other Musculoskeletal/Integumentary: Denies: OA, RA, DJD, DDD, edema, other PMH Narrative: as above, on last preoperative labwork blood sugar level low 54 according to patient asymptomatic that in conjunction with high level of insulin. Fasting BS level checked preoperatively 82, will proceed with scheduled procedure, recommended to follow up with more tests possible imaging studies. PSxH Narrative: Bilateral shoulder scope, knee scope, ACDF, T&A Anesthesia Pre-op Phys. Exam Physician Exam Last Vital Signs Date Time Temp Pulse Resp B/P (MAP) Pulse Ox O2 Delivery O2 Flow Rate FiO2 10/06/19 06:33 Room Air 10/06/19 06:26 97.4 58 18 104/64 (77) 98 Constitutional: NAD Neurologic: CN 2-12 intact Cardiovascular: RRR, no M/R/G Respiratory: CTA Gastrointestinal: S/NT/ND Airway Exam Mallampati Score: Class II MO: full Neck: stiff ROM: full Teeth: intact Dentures: no upper, no lower Anesthesia Pre-op A/P Labs see chart Studies Pre-op Studies: EKG - NSR, CXR - WNL Risk Assessment & Plan Assessment: ASA 2 Plan: GA with ETT, neuromonitoring Status Change Before Surgery: No Pre-Antibiotics Drug: Ancef 2gr Given Within 1 Hr of Incision: Yes Time Given: 08:05 Richard Damon MD Oct 06, 2019 08:22
[2019-10-06] MEDS ORDERED: Glycopyrrolate 0.2mg/ml 1ml Vial ONE (08:23)
[2019-10-06] MEDS ORDERED: Ketorolac 30mg Inj ONE (08:23)
[2019-10-06] MEDS ORDERED: Sodium Chloride 10ml vial INJ ONE (08:23)
[2019-10-06] MEDS ORDERED: Morphine Sulfate 10mg/ml Inj ONE (08:23)
[2019-10-06] MEDS ORDERED: NS Irrig 1000ml IRRIG ONE (08:25)
--- NOTE | 2019-10-06 09:39 | Immediate Post-Op Evaluation ---
Immediate Post-Op Evalulation Immediate Post-Op Evalulation Procedure: L4-L5-S1 laminotomy with discectomy and decompression Date of Evaluation: Oct 06, 2019 Time of Evaluation: 09:38 IV Fluids: 1200 Blood Products: none Estimated Blood Loss: 50 Urinary Output: 250 Blood Pressure Systolic: 108 Blood Pressure Diastolic: 76 Pulse Rate: 72 Respiratory Rate: 20 O2 Sat by Pulse Oximetry: 99 Temperature (Fahrenheit): 98.3 Pain Score (1-10): 1 Nausea: No Vomiting: No Complications none Patient Status: reacts, patent, extubated, none Hydration Status: adequate Richard Damon MD Oct 06, 2019 09:39
[2019-10-06] MEDS: Hydromorphone 0.5mg/0.5ml inj IVP PRN ×2 (09:56→10:21)
--- NOTE | 2019-10-06 11:04 | NUR ---
NURSE NOTES: Patient arrived on unit via hospital bed. Stable. Denies pain or SOB. On 3L oxygen via NC, tolerated well. Patient's skin is clean, dry, and intact. Surgical dressing c/d/i. Ice pack in place. Plan of care discussed with patient, verbalized understanding. Patient in bed in locked and lowest position with call light within reach. Will continue to monitor.
--- NOTE | 2019-10-06 11:50 | Diagnostic Imaging Report ---
INDICATION: Pain, intraoperative TECHNIQUE: Intraoperative imaging Fluoroscopy time: 4.6 seconds Total dose: 0.88928 mGym2 Total number of images: 2 COMPARISON: None FINDINGS: Intraoperative images demonstrate surgical tool projected posterior to what are presumably L4-5 and L5-S1 discs. Subsequent image demonstrates a surgical tool posterior to L5-S1 IMPRESSION: Intraoperative imaging, as described
[2019-10-06] MEDS ORDERED: NS w/KCl 20mEq 1000ml 1,000 ML IV SCH (12:00)
--- NOTE | 2019-10-06 14:00 | NUR ---
NURSE NOTES: Patient voided yellow urine. No c/o burning or discomfort noted at this time.
[2019-10-06] MEDS: Dexamethasone 4mg/ml vial IVP SCH ×2 (14:31→19:33)
[2019-10-06] MEDS: ceFAZolin sod 1 GM in D5W 55 ML IV SCH ×2 (16:28→23:49)
[2019-10-06] MEDS: Docusate 100mg cap ORAL SCH (17:43)
--- NOTE | 2019-10-06 19:30 | NUR ---
HAND-OFF: Report given to Poppy MELGAR. Patient is stable.
[2019-10-06] MEDS: Morphine Sulfate 4mg/ml Inj (IV USE ONLY) IV PRN ×2 (19:32→23:53)
--- NOTE | 2019-10-06 22:27 | NUR ---
NURSE NOTE: Pt is A/Ox4 with stable VS. Pt's significant other is at the bedside. Orders reviewed and physical assessment completed. Pt attempted to get up from bed on his own, pt instructed to ask and wait for RN assist when attempting to sit at edge of bed or ambulate. Call pearce is within reach, will continue to monitor.
[2019-10-07 00:04] VITALS: BP 119/69
[2019-10-07] MEDS: Dexamethasone 4mg/ml vial IVP SCH ×2 (01:43→08:13)
[2019-10-07 04:00] VITALS: BP 108/69
[2019-10-07] MEDS: Morphine Sulfate 4mg/ml Inj (IV USE ONLY) IV PRN ×2 (04:18→08:14)
--- NOTE | 2019-10-07 05:45 | Operative Note - Dictated ---
DATE OF OPERATION: 10/06/2019 SURGEON: Jose A Longoria MD, Orthopaedic Spine Surgeon. SIX [employer] PRESS OPERATOR SURGEON: Tobi Cassidy M.D. ANESTHESIOLOGIST: Richard Damon M.D. ANESTHESIA: General endotracheal anesthesia. PREOPERATIVE DIAGNOSES: 1. Intractable back pain. 2. Intractable leg pain. 3. Worsening radiculopathy. 4. Weakness. 5. Herniated nucleus pulposus, L4-L5 and L5-S1 herniation. 6. Neural foraminal stenosis, L4-L5 and L5-S1. POSTOPERATIVE DIAGNOSES: 1. Intractable back pain. 2. Intractable leg pain. 3. Worsening radiculopathy. 4. Weakness. 5. Herniated nucleus pulposus, L4-L5 and L5-S1 herniation. 6. Neural foraminal stenosis, L4-L5 and L5-S1. PROCEDURES PERFORMED: 1. Left-sided L4-L5 and L5-S1 microdiscectomy. 2. L4-L5 and L5-S1 hemilaminotomy, foraminotomy, and medial facetectomy. 3. L4-L5 and L5-S1 neural foraminotomy through a transpedicular intraforaminal approach. 4. Use of intraoperative microscope. 5. Supervision and interpretation of intraoperative fluoroscopy. 6. Supervision and interpretation of somatosensory-evoked potential and free-running EMG monitoring. ESTIMATED BLOOD LOSS: Less than 100 mL. COMPLICATIONS: None. INDICATIONS FOR THE PROCEDURE: Klaus presents for intractable back pain and radiculopathy. The patient tried and failed a prolonged course of conservative management, including but not limited to chiropractic therapy, physical therapy, nonsteroidal anti-inflammatory drugs, medication, ice packs as well as epidural injection. Despite these therapies, the patient still developed recalcitrant pain and elected for definitive management in the form of left-sided L4-L5 and L5-S1 microdiscectomy; L4-L5 and L5-S1 hemilaminotomy, foraminotomy, and medial facetectomy; L4-L5 and L5-S1 neural foraminotomy through a transpedicular intraforaminal approach. We had a long discussion with him regarding definitive surgical treatment options. The patient's MRI demonstrated herniated nucleus pulposus at L4-L5 and L5-S1 herniation, and neural foraminal stenosis at L4-L5 and L5-S1, and as a result, I felt he would benefit from the discectomy as well as neural foraminotomy at this level. We had a long discussion with the patient regarding the risks, alternatives, and benefits of surgery. Our description of the risks included a discussion in person as well as a signed consent which detailed all pertinent risks and the procedure itself. Briefly, our discussion included but was not limited to infection, bleeding, pseudarthrosis, spinal cord injury, neurovascular injury, dural tear, CSF leak, neuropathy, paralysis, permanent weakness/drop foot, paresthesias blindness, palsy, and weakness. The patient understood there may be a need for revision surgery or additional procedures. Approach-related complications including dysphonia, dysphagia, blindness, permanent vocal cord and neural injury, hematoma, swallowing and breathing difficulty. Medical complications including liver, kidney, shock, and cardiopulmonary failure. Anesthesia complications including , swelling, damage to the musculature, larynx (voice injury or loss),esophagus (throat), trachea, blood vessels and muscles (muscular sprain) and lungs (pneumothorax) during this surgical procedure. Injury to deeper structures may be temporary or permanent. The patient understood these and elected to proceed. A written and verbal consent was given. We discussed the pros and cons of all the alternatives. We discussed the uncertainties associated with the decision. Afterwards, I assessed the patients understanding and explored their preferences. All questions were answered and no guarantees were given. Medical clearance was obtained prior to surgery. INTRAOPERATIVE FINDINGS: At L4-L5; there was a significant component of lateral recess stenosis coupled with foraminal stenosis. This was encountered throughout the entire decompression in the form of facet joint hypertrophy and ligamentum flavum hypertrophy coupled with a posterior disc fragment. The fragment itself was encountered along the left side lateral one-third of the disc though a tear encountered in the posterior longitudinal ligament approximately vertical and through this tear, there was small element of herniated nucleus pulposus, which was also visualized on preoperative MRI, which was resected with a combination of #15 blade scalpel, downgoing curettage, arthroscopic pituitaries, and Art pituitaries. The disc space itself was empty after removal of the disc, which had herniated disc space is cause for concern in regard to low back pain down the line as he has herniated with remnants of the nucleus pulposus he had left it appears. At L5-S1; there was a component of lateral recess and significant amount of neural foraminal stenosis at L5-S1 bilaterally, again worse on the left side. The neural foraminal stenosis and lateral recess stenosis were secondary to an element of facet joint hypertrophy as well as ligamentum flavum hypertrophy, which was completely resected during the foraminotomy and along the posterolateral third of the disc and there was an extrusion of the disc fragment, which was visualized through a near-vertical tear in the posterior longitudinal ligament, which I could mobilize with a combination of downgoing curettage and a Srinath dental. The disc itself was resected with arthroscopic pituitaries and Art pituitaries, narrow pituitaries measuring 1.5 and 2 mm. Disc space was irrigated and in the disc itself, there appeared to be herniated residual of nucleus pulposus. The nucleus pulposus at both levels was soft and spongy. It was not calcified or crumbled, which is what we tend to see in more degenerative stage. DESCRIPTION OF PROCEDURE: Under the benefit of general endotracheal anesthesia and with the assistance of the entire operative team, the patient was moved from the [facility] onto the operative table in the prone position on a Sam frame. The head was secured and positioned appropriately. Bilateral arms were secured with Gel Pads and foam and all bony prominences were padded. The bilateral lower extremity SCD and GENET hose were placed for DVT prophylaxis. A surgical timeout was called, which corroborated our planned procedure. Preoperative antibiotics were administered within 30 minutes of the incision for prophylaxis. Decadron was given for preoperative steroids. Using lateral radiography, the operative levels were delineated. An incision was marked based on our interpretation of lateral radiography and afterwards the body was prepped and draped in the usual sterile manner. The family was notified that we were ready to commence surgery and were called in the waiting room hourly for updates. An incision was based on our lateral fluoroscopic image to center the incision at the L5-S1 interspace. The wound was prepped and draped in the usual sterile fashion. Using a scalpel, a midline incision was taken down through the skin and subcutaneous tissues until the overlying hemilamina of L4-L5 and L5-S1, were visualized. Next, using meticulous hemostasis, hemilaminotomies were dissected and retractors were placed. Using a [place] dental, we confirmed placement at the L4-L5 and L5-S1 interspace. We next turned our attention to our decompression. A standard hemilaminotomy, foraminotomy, and medial facetectomy was performed at each level in standard fashion using a Midas-Noe type AM8 drill bit, straight and angled curettage, and [place] 4 rongeurs until the lateral thecal sac margin and traversing nerve root was visualized. All remainders of the ligamentum flavum and lateral bony margins were resected in total with angled curettage and [place] 4 rongeurs until the lateral thecal sac margin and traversing nerve root was visualized and decompressed. We next turned our attention toward our L4-L5 and L5-S1 microdiscectomy on the left side. A [place] 4 was used to gently mobilize the thecal sac medially and this was held retracted with a bayonetted nerve root retractor. It was at this point that we noted a large broad-based disc protrusion with encroachment dorsally on the thecal sac and neural foraminal contents. A bayonet and nerve root retractor was then placed carefully to retract the thecal sac and a discectomy was performed using a combination of a long-handled 15 blade scalpel, downgoing and straight pituitaries, and downgoing curettage. Afterward, the disc space was irrigated twice with 20 mL of antibiotic-impregnated saline. All loose and free-floating disc fragments were carefully resected with a narrow pituitary. Having been satisfied with our decompression after our discectomy of all neural elements, we next turned our attention to our neural foraminoplasty/foraminotomy. This was performed through a transpedicular intraforaminal approach using an access probe followed by a neuro-check device, which confirmed ventral placement of our nerve root. Once we confirmed we were safe, we next turned our attention towards placement of our size 10 file under direct microscopic visualization and under lateral fluoroscopy. Using pre-reciprocation and post-reciprocation imaging, we were able to visualize our direct decompression given the reciprocation allowed for re-creation of the neural foraminal arch at L4-L5 and L5-S1. Afterwards, hemostasis was obtained with 60 mL of antibiotic-impregnated saline followed by FloSeal and Gelfoam. After sponge and needle count were found to be correct, next we turned our attention to closure. Closure consisted of 1-0 Vicryl in standard interrupted fashion. Zosyn was placed deep to the fascia and superficial to the fascia for antibiotic prophylaxis. Skin closure was performed with 2-0 Vicryl in interrupted fashion followed by a running Monocryl for the skin. Final dressings consisted of Dermabond for the superficial skin, Telfa, and Tegaderm. The patient tolerated the procedure well. The patient was extubated after the conclusion of surgery without incident. We discussed the findings of the surgery with the family upon completion of the case. At this point, the patient will be transferred to the spine floor for further observation. Jose A Longoria M.D. DR: Kristen JOB#: [id number] CC:
[2019-10-07] MEDS ORDERED: NS Irrig 1000ml ONE (06:52)
[2019-10-07] MEDS ORDERED: Sterile Water Irrig 1000ml IRRIG ONE (06:52)
[2019-10-07] MEDS ORDERED: LR 1000ml ONE (06:52)
--- NOTE | 2019-10-07 07:04 | NUR ---
HAND-OFF: Report given to César Basilio.
[2019-10-07 08:00] VITALS: BP 124/74
[2019-10-07] MEDS: ceFAZolin sod 1 GM in D5W 55 ML IV SCH (08:13)
[2019-10-07] MEDS: Docusate 100mg cap ORAL SCH ×2 (08:13→18:13)
--- NOTE | 2019-10-07 08:15 | 48 Hour Post Anesthesia Eval ---
Post Anesthesia Evaluation Procedure: L4-L5-S1 laminotomy with discectomy and decompression Date of Evaluation: Oct 07, 2019 Time of Evaluation: 06:07 Blood Pressure Systolic: 108 0: 69 Pulse Rate: 83 Respiratory Rate: 16 Temperature (Fahrenheit): 98.1 O2 Sat by Pulse Oximetry: 97 Airway: patent Nausea: No Vomiting: No Pain Intensity: 2 Hydration Status: adequate Cardiopulmonary Status: Stable Mental Status/LOC: patient returned to baseline Follow-up Care/Observations: 0 Post-Anesthesia Complications: 0 Follow-up care needed: N/A Simba Washington MD Oct 07, 2019 08:15
--- NOTE | 2019-10-07 09:10 | NUR ---
PT EVALUATION NOTE Patient seen for initial evaluation, see complete evaluation for details. Patient presents with impaired functional mobility and knowledge of back precautions s/p lumbar surgery. Patient educated in log roll technique and back precautions. Patient requires SBA for bed mobility, transfers and ambulation. Patient able to ambulate 200 ft with FWW and SBA. Patient will benefit from skilled inpatient PT intervention to address safety, balance and strength for improved functional mobility with adherance to back precautions. Recommend discharge home once medically cleared by MD. Patient may need FWW for amb depending on pt's progress and will need raised toilet seat. Addendum: 10/07/19 at 1303 by SUSANNA VILLA PT Amended: Links added.
--- NOTE | 2019-10-07 10:39 | NUR ---
NURSE NOTES: PT AXOX4, CALM, RESTING IN BED. PT AMBULATED WITH PHYSICAL THERAPIST WITH WALKER. PT STATES PAIN IS THE SAME, 6-05/06. PT SPOKE TO DR MACIEL OVER THE PHONE. PER DR MACIEL, WILL CONTINUE TO MONITOR PAIN AND START PHYSICAL THERAPY. IN NO APPARENT DISTRESS AT THIS TIME. CALL LIGHT WITHIN REACH. EDUCATED ON USE OF SCDs FOR DVT PROPHYLAXIS AND PT MAY TAKE 1 HOUR BREAK FROM SCDs. PT VERBALIZED UNDERSTANDING. RN ORDERED INCENTIVE SPIROMETER FROM RESPIRATORY THERAPIST.
[2019-10-07] MEDS: HYDROcodone/Acetamin 7.5/325 tab ORAL PRN ×4 (11:49→20:29)
[2019-10-07 11:56] VITALS: BP 124/74
--- NOTE | 2019-10-07 11:58 | NUR ---
NURSE NOTES: PT STATES HE WANTS TO TRY TO WEAN OFF MORPHINE AND START NORCO. PER PT, HIS PAIN LEVEL IS 7/10 DUE TO AMBULATION. RN ADMINISTERED PRN NORCO 7.5MG, 2 TABLETS FOR PAIN 7-10. WILL CONTINUE TO MONITOR.
--- NOTE | 2019-10-07 14:13 | NUR ---
NURSE NOTES: SURGICAL DRESSING CHANGED. NO DRAINAGE NOTED. SURGICAL SITE IS CLEAN AND DRY. NO SWELLING, REDNESS OR TENDERNESS NOTED. PT STATES PAIN LEVEL IS 5/10. PT EDUCATED ON DRESSING CHANGES AND S/S OF INFECTION. WILL CONTINUE TO MONITOR.
--- NOTE | 2019-10-07 14:39 | NUR ---
HAND-OFF: Report given to Waleska MARTE RN.
--- NOTE | 2019-10-07 14:44 | NUR ---
NURSE NOTES: Received report from César MELGAR. Patient is awake and oriented, no acute distress noted, IV intact. Needs met, no requests at this time. Side rails upx2, bed low and locked, call light within reach.
[2019-10-07 16:01] VITALS: BP 110/82
--- NOTE | 2019-10-07 16:39 | NUR ---
CASE MANAGEMENT:REVIEW 53 YR OLD FEMALE HERE FOR ELECTIVE SURGERY SI: BACK PAIN AND RADICULOPATHY BUTTOCK PAIN 97.4 58 18 104/64 98% ON RA IS: TO SURGERY FOR BILATERAL LUMBAR MICRODISCECTOMY IV DECADRON Q6HRS IV ANCEF Q8HRS : TO MED/SURG POST OP 10/07/19 SI: POD #1 97.9 61 21 110/82 96% ON RA IS: IV MORPHINE Q3HRS PRN COLACE PO BID PHYSICAL THERAPY : MED/SURG STATUS 3 EAST
--- NOTE | 2019-10-07 19:18 | NUR ---
HAND-OFF: Report given to Juan M MELGAR.
--- NOTE | 2019-10-07 19:30 | NUR ---
NURSE NOTES: Receive a report from TALIA Loo. Round is done. Pt is awake and alert, sitting on the chair. No acute distress noted. Surgery site is clear without bleeding signs. Pain is 4-5/10 without side effects. Will provide pain medication as ordered if needed. Will continue to monitor.
[2019-10-07 20:00] VITALS: BP 125/75
[2019-10-08] VITALS: BP 116/70
[2019-10-08] MEDS: HYDROcodone/Acetamin 7.5/325 tab ORAL PRN ×4 (00:02→12:31)
--- NOTE | 2019-10-08 03:16 | NUR ---
NURSE NOTES: Pain level increased as 05/06. Offer IV pain medication but wants to take oral pain medication to control pain for discharge. Reapply ice bags on the site. Will continue to monitor.
[2019-10-08 04:00] VITALS: BP 134/83
--- NOTE | 2019-10-08 06:45 | NUR ---
NURSE NOTES: Pt is awake and alert. Back pain is tolerated. H/L on left hand got removed accidentally. Pt refuses to get IV insertion d/t discharge planning today. CN made aware. Will continue to monitor.
--- NOTE | 2019-10-08 07:05 | NUR ---
NURSE NOTES: Report received from o RN. Patient resting in prone position in bed. Alert, oriented x4, calm. No distress on RA, encouraged IS. No IV access. Neuro checks done, intact. Wiggles, skin warm, pulses palpable, no NT, equal/strong hand grasps/pedal pushes. Bilateral SCDs off. Spouse at bedside. No NV. Surgical dressing to lower back, CDI. Pain to surgical site 05/06, will medicate as ordered. Will follow up with PT. Call light in reach, bed in lowest position, will continue to monitor.
--- NOTE | 2019-10-08 07:30 | NUR ---
HAND-OFF: Report given to TALIA Betancourt.
[2019-10-08 08:00] VITALS: BP 128/84
[2019-10-08] MEDS: Docusate 100mg cap ORAL SCH (08:49)
[2019-10-08 12:00] VITALS: BP 122/77
[2019-10-08] MEDS ORDERED: NORCO 10-325 T1 EACH ORAL (12:00)
[2019-10-08] MEDS ORDERED: CARISOPRODOL350 MG ORAL (12:01)
--- NOTE | 2019-10-08 14:36 | NUR ---
NURSE NOTES: Discharge instructions and prescription x1 reviewed with patient, verbalized understanding. Prescription faxed to [facility] for patient to pickup driver. All belongings, discharge instructions and raised toilet seat given to patient. No IV access. Patient ambulated down to lobby with Diana OVAL OR CIRCULAR GLASS CUTTER and patient's mother, in stable condition. Discharged home at 1436.
--- NOTE | 2019-10-09 09:16 | Discharge Summary ---
Discharge Summary Hospital Course Date of Admission Oct 06, 2019 at 05:19 Date of Discharge Oct 08, 2019 at 14:40 Admitting Diagnosis Lumbar L45, L5S1 herniation and neuroforaminal stenosis Reason for Hospitalization: elective surgery HPI Klaus Ramírez is a 53 year old male who was admitted on Oct 06, 2019 at 05: 19 for Herniated Nucleus Pulposus,Pain,Radiculopathy. Patient was admitted for elective surgery Procedures s/p 10/06/[address] Longoria 1. Left-sided L4-L5 and L5-S1 microdiscectomy. 2. L4-L5 and L5-S1 hemilaminotomy, foraminotomy, and medial facetectomy. 3. L4-L5 and L5-S1 neural foraminotomy through a transpedicular intraforaminal approach. 4. Use of intraoperative microscope. 5. Supervision and interpretation of intraoperative fluoroscopy. 6. Supervision and interpretation of somatosensory-evoked potential and free-running EMG monitoring. Hospital Course status post surgery course of recovery uneventful initially IV fluids s/p perioperative antibiotics and IV Decadron neurovascular status closely monitored, remained stable incision clean dry and intact with dressing pain management addressed ; pain controlled patient remained hemodynamically stable ambulated with PT fall precautions maintained; safe for ambulation DVT prophylaxis with SCD provided use of incentive spirometry was encouraged while in the bed tolerated diet , IV fluids discontinued GI prophylaxis provided antiemetics were on board as needed Chloraseptic spray and Cepacol lozenges were on board as needed voided freely bowel regimen instituted patient was stable for discharge discharge instructions provided follow up with surgeon in the office as outpatient as advised FINAL DIAGNOSES Intractable back pain. Intractable leg pain. Worsening radiculopathy. Weakness. Herniated nucleus pulposus, L4-L5 and L5-S1 herniation. Neural foraminal stenosis, L4-L5 and L5-S1. s/p Lumbar bilateral hemilaminotomy, foraminotomy, microdiscectomy of L45, L5S1 Discharge Medications Continued Medications: Carisoprodol* (Carisoprodol*) 350 Mg Tablet 350 MG ORAL BID, #90 TAB (This prescription has been renewed) Hydrocodone Bit/Acetaminophen 10-325* ([place] 10-325*) 1 Each Tablet 1 TAB ORAL Q8HR PRN for For Pain, #90 TAB 0 Refills (This prescription has been renewed) PRN PAIN Discharge Condition Upon Discharge: stable Discharge Disposition Patient was discharged to Home (01) Discharge Instructions Discharge Instructions Special Instructions I have been assigned to complete a D/C Summary on this account. I was not involved in the patient management Saritha Valencia NP Oct 09, 2019 09:16
== END 2019-10-08 14:40 | disposition home or self-care (01) | DRG 520 ==
LOC: SDSOVERFLO 05:19 → 3E 10:50
PROC: 01NR0ZZ Release Sacral Nerve, Open Approach (ICD-10-PCS; principal; 2019-10-06 07:00)
PROC: 0SB40ZZ Excision of Lumbosacral Disc, Open Approach (ICD-10-PCS; principal; 2019-10-06 07:00)
PROC: 01NB0ZZ Release Lumbar Nerve, Open Approach (ICD-10-PCS; principal; 2019-10-06 07:00)
PROC: 0SB20ZZ Excision of Lumbar Vertebral Disc, Open Approach (ICD-10-PCS; principal; 2019-10-06 07:00)
DX: M51.16 Intervertebral disc disorders with radiculopathy, lumbar region (principal); M51.17 Intervertebral disc disorders with radiculopathy, lumbosacral region; M48.061 Spinal stenosis, lumbar region without neurogenic claudication; M48.07 Spinal stenosis, lumbosacral region; Z88.8 Allergy status to other drugs, medicaments and biological substances
CPT/HCPCS: 36415; 72020; 76000; 82962; 86850; 86900; 86901; 87081; 94003; 94150; J2250